=== PATIENT | female | born 1960 | race Caucasian/White ===

== ENCOUNTER 2021-01-31 19:45 | Emergency (ER) | payer BC, MEDICARE ==
[2021-01-31 20:04] VITALS: BP 165/91; PULSE 98
--- NOTE | 2021-01-31 20:33 | EDM.PDOC ---
ED HPI GENERAL MEDICAL PROBLEM - General Chief Complaint: Abdominal Pain Stated Complaint: POSSIBLE BLADDER INFECTION Time Seen by Provider: 01/31/21 20:15 Source of Information: Reports: Patient History Limitations: Reports: No Limitations - History of Present Illness INITIAL COMMENTS - FREE TEXT/NARRATIVE: Nathaly is a 60-year-old female presenting to the ED with urinary symptoms including dysuria and frequency. She is a living donor renal transplant. She also complains of right sided low abdominal pain radiating up into the right upper quadrant. She has had generalized malaise today and just feels achy and ill. She denies any nausea, vomiting, constipation or diarrhea. She has been running low-grade fever at 99.5 F at home. She is afebrile here. She is immunosuppressed due to the transplant on Imuran and CellCept. Her transplant was performed in 2018 at [facility]. Right Lower Abdomen Pain Score (Numeric/FACES): 5 - Related Data Allergies Allergy/AdvReac Type Severity Reaction Status Date / Time Sulfa (Sulfonamide Allergy Mild Hives Verified 03/05/16 21:40 Antibiotics) Home Meds: Home Meds Aspirin [Aspirin EC] 81 mg PO DAILY 08/28/13 [History] Cholecalciferol (Vitamin D3) [Vitamin D] 2,000 mg PO DAILY 08/28/13 [History] Ferrous Sulfate 324 mg PO BID 08/28/13 [History] Furosemide 20 mg PO DAILY 08/28/13 [History] Lisinopril 20 mg PO BID 08/28/13 [History] Metoprolol Succinate [Toprol XL] 50 mg PO BID 08/28/13 [History] [place]-3 Fatty Acids [[place]-3] 1,000 mg PO DAILY 08/28/13 [History] Omeprazole 20 mg PO ACBRK 08/28/13 [History] Simvastatin 40 mg PO BEDTIME 08/28/13 [History] allopurinoL [Allopurinol] 150 mg PO DAILY 08/28/13 [History] Past Medical History HEENT History: Reports: Impaired Vision Cardiovascular History: Reports: High Cholesterol, Hypertension Gastrointestinal History: Reports: GERD Genitourinary History: Reports: Renal Disease, Other (See Below) Other Genitourinary History: Stage 4 kidney disease. kidney transplant - 10/31/2017 [employer] History: Reports: Musculoskeletal History: Reports: Back Pain, Chronic, Gout Neurological History: Reports: Brain Injury, Head Trauma Endocrine/Metabolic History: Reports: Obesity/BMI 30+ Hematologic History: Reports: Anemia, Iron Deficiency Oncologic (Cancer) History: Reports: Breast Dermatologic History: Reports: Eczema - Infectious Disease History Infectious Disease History: Reports: Chicken Pox - Past Surgical History Female Surgical History: Reports: D&C, Tubal Ligation Oncologic Surgical History: Reports: Lumpectomy Social & Family History - Family History Family Medical History: Unobtainable - Tobacco Use Tobacco Use Status *Q: Never Tobacco User - Caffeine Use Caffeine Use: Reports: Coffee - Recreational Drug Use Recreational Drug Use: No ED ROS GENERAL - Review of Systems Review Of Systems: See Below Constitutional: Reports: Fever, Chills, Malaise HEENT: Reports: No Symptoms Respiratory: Reports: No Symptoms Cardiovascular: Reports: No Symptoms Endocrine: Reports: No Symptoms GI/Abdominal: Reports: Abdominal Pain (Right lower quadrant abdominal pain. Patient still has appendix.) : Reports: Dysuria, Flank Pain (Right), Urgency, Other (Patient has a living donor renal recipient) Musculoskeletal: Reports: No Symptoms Skin: Reports: No Symptoms Neurological: Reports: No Symptoms Psychiatric: Reports: No Symptoms Hematologic/Lymphatic: Reports: No Symptoms Immunologic: Reports: No Symptoms ED EXAM, RENAL/ - Physical Exam Exam: See Below Exam Limited By: No Limitations General Appearance: Alert, No Apparent Distress Head: Atraumatic, Normocephalic Neck: Normal Inspection Respiratory/Chest: No Respiratory Distress, Lungs Clear, Normal Breath Sounds Cardiovascular: Normal Peripheral Pulses, Regular Rate, Rhythm, No Murmur GI/Abdominal: Normal Bowel Sounds, Soft, No Distention, Tender (Mild tenderness in the right lower and right upper quadrant without guarding or rebound. There is significant tympany to percussion over this region. This is likely a pocket of flatus.). No: Guarding, Rigid, Rebound Neurological: Alert, Oriented, Normal Cognition, No Motor/Sensory Deficits Psychiatric: Normal Affect, Normal Mood Skin Exam: Warm, Dry, Intact, Normal Color Lymphatic: No Adenopathy Course - Vital Signs Last Recorded V/S: Last Vital Signs Temp 37.2 C 01/31/21 20:02 Pulse 98 01/31/21 20:02 Resp 16 01/31/21 20:02 BP 165/91 H 01/31/21 20:02 Pulse Ox 95 01/31/21 20:02 - Orders/Labs/Meds Labs: Laboratory Tests 01/31/21 Range/Units 20:05 Urine Color Yellow (YELLOW) Urine Appearance Cloudy A (CLEAR) Urine pH 7.0 (5.0-8.0) Ur Specific [place] >= 1.030 (1.008-1.030) Urine Protein >=300 H (NEGATIVE) mg/dL Urine Glucose (UA) Negative (NEGATIVE) mg/dL Urine Ketones Negative (NEGATIVE) mg/dL Urine Occult Blood Moderate H (NEGATIVE) Urine Nitrite Negative (NEGATIVE) Urine Bilirubin Negative (NEGATIVE) Urine Urobilinogen 0.2 (0.2-1.0) EU/dL Ur Leukocyte Esterase Moderate H (NEGATIVE) Urine RBC 75-100 H (0-5) Urine WBC 50-75 H (0-5) Ur Epithelial Cells Few Amorphous Sediment Few Urine Bacteria Moderate Urine Mucus Occasional - Re-Assessments/Exams Free Text/Narrative Re-Assessment/Exam: 01/31/21 20:35 I reviewed the patient's urinalysis showing 75-100 RBCs, 50-75 WBCs and leukocyte esterase positive. This is significant for a urinary tract infection with hematuria. We will start her on cephalexin 500 mg twice daily for 10 days. In addition I ordered a urine culture to ensure that we appropriately treat the bacterium. The right sided abdominal pain is likely due to excessive flatus. Because of the renal transplant, she is unable to take any of the simethicone-based medications that contain phosphates which eliminates all but Maalox. She may take a single dose of Maalox safely. Indications return to the ED were discussed and she was discharged in satisfactory condition. Departure - Departure Time of Disposition: 20:28 Disposition: Home, Self-Care 01 Clinical Impression: Renal transplant recipient, Flatus Urinary tract infection Qualifiers: Urinary tract infection type: acute cystitis Hematuria presence: with hematuria Qualified Code(s): N30.01 - Acute cystitis with hematuria - Discharge Information Instructions: Abdominal Pain, Adult, [id number], Urinary Tract Infection, Adult, [id number] Referrals: Debbie Shirley PA-C [Primary Care Provider] - Care Plan Goals: We are starting you out on cephalexin 500 mg twice daily for 10 days. I have ordered a urine culture and if this shows resistance to the cephalexin we will contact you and change the antibiotic. Please contact your transplant team and let them know that you have a urinary tract infection just for their knowledge. Should you have any worsening of your condition return to the ED immediately for reevaluation. Make sure to push plenty of fluids. Sepsis Event Note (ED) - Evaluation Sepsis Screening Result: No Definite Risk - Focused Exam Vital Signs: Vital Signs Temp Pulse Resp BP Pulse Ox 01/31/21 20:02 37.2 C 98 16 165/91 H 95 - Problem List & Annotations (1) Flatus SNOMED Code(s): 778780301 Code(s): R14.3 - FLATULENCE Status: Acute Priority: Low Current Visit: Yes (2) Renal transplant recipient Status: Acute Priority: High Current Visit: Yes (3) Urinary tract infection SNOMED Code(s): 59874376 Code(s): N39.0 - URINARY TRACT INFECTION, SITE NOT SPECIFIED Status: Acute Priority: Medium Current Visit: Yes Qualifiers: Urinary tract infection type: acute cystitis Hematuria presence: with hematuria Qualified Code(s): N30.01 - Acute cystitis with hematuria - Problem List Review Problem List Initiated/Reviewed/Updated: Yes
== END 2021-01-31 20:41 | disposition home or self-care (01) ==
LOC: JP.ED 19:45
DX: N30.01 Acute cystitis with hematuria (principal); R14.3 Flatulence; I12.9 Hypertensive chronic kidney disease with stage 1 through stage 4 chronic kidney disease, or unspecified chronic kidney disease; N18.4 Chronic kidney disease, stage 4 (severe); K21.9 Gastro-esophageal reflux disease without esophagitis; E66.9 Obesity, unspecified; Z88.2 Allergy status to sulfonamides; Z94.0 Kidney transplant status; Z79.82 Long term (current) use of aspirin; Z68.39 Body mass index [BMI] 39.0-39.9, adult
CPT/HCPCS: 81001; 87086; 99283; 99284

== ENCOUNTER 2021-03-06 07:19 | Emergency (ER) | payer BC ==
[2021-03-06 07:42] VITALS: BP 147/89; PULSE 86
--- NOTE | 2021-03-06 08:07 | EDM.PDOC ---
ED HPI GENERAL MEDICAL PROBLEM - General Chief Complaint: Back Pain or Injury Stated Complaint: BACK PAIN AND LEG PAIN Time Seen by Provider: 03/06/21 07:50 Source of Information: Reports: Patient History Limitations: Reports: No Limitations - History of Present Illness INITIAL COMMENTS - FREE TEXT/NARRATIVE: 60 yo female here with L buttocks pain that radiates down her L leg. Sx's x 8 days. Was seen in the clinic this past Monday and is not getting better. Sx's began when she got up from a chair at work. No fall or lifting. Pain does not radiate with coughing. No bowel or bladder dysfunction. PHx of kidney transplant. 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) (gabapentin/tizanidine) Lower Back Pain Score (Numeric/FACES): 3 - Related Data Allergies Allergy/AdvReac Type Severity Reaction Status Date / Time Sulfa (Sulfonamide Allergy Mild Hives Verified 03/06/21 07:38 Antibiotics) Home Meds: Home Meds Aspirin 1 tab PO BEDTIME 01/31/21 [History] Dulaglutide [Trulicity] 0.5 ml SQ WEEKLY 01/31/21 [History] Ferrous Gluconate 1 tab PO BID 01/31/21 [History] Loratadine 1 tab PO DAILY 01/31/21 [History] Magnesium Oxide [Magnesium] 1 tab PO BID 01/31/21 [History] Metoprolol Tartrate 1 tab PO BID 01/31/21 [History] Multivit-Min/FA/Lycopen/Lutein [Certavite Senior Tablet] 1 tab PO DAILY 01/31/21 [History] [id number] Ethyl Esters [Lovaza] 1 cap PO DAILY 01/31/21 [History] Omeprazole 1 cap PO DAILY 01/31/21 [History] Tacrolimus 1 cap PO DAILY 01/31/21 [History] Tacrolimus [Prograf] 1 cap PO DAILY 01/31/21 [History] amLODIPine [Norvasc] 1 tab PO DAILY 01/31/21 [History] atorvaSTATin [Lipitor] 1 tab PO BEDTIME 01/31/21 [History] gemfibroziL [Gemfibrozil] 1 tab PO BID 01/31/21 [History] metFORMIN HCl [Metformin ER Gastric] 1,000 mg PO BID 01/31/21 [History] mycophenolate mofetiL [Mycophenolate Mofetil] 3 cap PO ACBREAKFAST 01/31/21 [History] Gabapentin [Neurontin] 200 mg PO BID 03/06/21 [History] tiZANidine [Zanaflex] 4 mg PO Q8H PRN 03/06/21 [History] Past Medical History HEENT History: Reports: Impaired Vision Cardiovascular History: Reports: High Cholesterol, Hypertension Gastrointestinal History: Reports: GERD Genitourinary History: Reports: Renal Disease, Other (See Below) Other Genitourinary History: Stage 4 kidney disease. kidney transplant - 10/31/2017 [employer] History: Reports: Musculoskeletal History: Reports: Back Pain, Chronic, Gout Neurological History: Reports: Brain Injury, Head Trauma Endocrine/Metabolic History: Reports: Obesity/BMI 30+ Hematologic History: Reports: Anemia, Iron Deficiency Oncologic (Cancer) History: Reports: Breast Dermatologic History: Reports: Eczema - Infectious Disease History Infectious Disease History: Reports: Chicken Pox - Past Surgical History Female Surgical History: Reports: D&C, Tubal Ligation Oncologic Surgical History: Reports: Lumpectomy Social & Family History - Family History Family Medical History: Unobtainable - Tobacco Use Tobacco Use Status *Q: Never Tobacco User - Caffeine Use Caffeine Use: Reports: Coffee - Recreational Drug Use Recreational Drug Use: No ED ROS GENERAL - Review of Systems Review Of Systems: See Below Constitutional: Reports: No Symptoms HEENT: Reports: No Symptoms Respiratory: Reports: No Symptoms Cardiovascular: Reports: No Symptoms GI/Abdominal: Reports: No Symptoms Musculoskeletal: Denies: Back Pain Skin: Reports: No Symptoms Neurological: Reports: Other (pain radiates down L leg) Psychiatric: Reports: No Symptoms ED EXAM,LOWER BACK PAIN/INJURY - Physical Exam Exam: See Below Exam Limited By: No Limitations General Appearance: Alert, WD/WN, No Apparent Distress, Obese Back Exam: Muscle Spasm, Paraspinal Tenderness, Vertebral Tenderness, Other (L sciatic notch tenderness). No: CVA Tenderness (R), CVA Tenderness (L) Extremities: Normal Inspection, Normal Range of Motion, Non-Tender, No Pedal Edema. No: Adelina's Sign Neurological: Alert, Normal Mood/Affect, CN II-XII Intact, No Motor/Sensory Deficits, Oriented x 3, Straight Leg Raise (L). No: Straight Leg Raise (R) DTR - Lower Extremities: 1+: Knee (R), Knee (L) Psychiatric: Normal Affect, Normal Mood Skin Exam: Warm, Dry, Intact, Normal Color, No Rash Course - Vital Signs Last Recorded V/S: Last Vital Signs Temp 36.4 C 03/06/21 07:49 Pulse 86 03/06/21 07:49 Resp 17 03/06/21 07:49 BP 147/89 H 03/06/21 07:49 Pulse Ox 96 03/06/21 07:49 Departure - Departure Time of Disposition: 08:08 Disposition: Home, Self-Care 01 Condition: Good Clinical Impression: Left sided sciatica - Discharge Information *PRESCRIPTION DRUG MONITORING PROGRAM REVIEWED*: No *COPY OF PRESCRIPTION DRUG MONITORING REPORT IN PATIENT [place]: No Instructions: Sciatica, [id number] Referrals: Debbie Shirley PA-C [Primary Care Provider] - Additional Instructions: Stop the tizanidine. You may continue the gabapentin. Take prednisone as directed. Add [place] as needed for added pain relief. See your provider for recheck early this next week. Sepsis Event Note (ED) - Evaluation Sepsis Screening Result: No Definite Risk - Focused Exam Vital Signs: Vital Signs Temp Pulse Resp BP Pulse Ox 03/06/21 07:49 36.4 C 86 17 147/89 H 96 03/06/21 07:41 36.4 C 86 17 147/89 H 96
== END 2021-03-06 08:23 | disposition home or self-care (01) ==
LOC: JP.ED 07:19
DX: M54.42 Lumbago with sciatica, left side (principal); E78.00 Pure hypercholesterolemia, unspecified; K21.9 Gastro-esophageal reflux disease without esophagitis; I12.9 Hypertensive chronic kidney disease with stage 1 through stage 4 chronic kidney disease, or unspecified chronic kidney disease; N18.4 Chronic kidney disease, stage 4 (severe); E66.9 Obesity, unspecified; Z68.39 Body mass index [BMI] 39.0-39.9, adult; Z88.2 Allergy status to sulfonamides; Z79.899 Other long term (current) drug therapy
CPT/HCPCS: 99283

== ENCOUNTER 2023-03-06 10:33 | Emergency (ER) | payer BC ==
[2023-03-06 11:24] LABS: BASOPHILS ABSOLUTE AUTO 0.03 K/uL (0.00-0.10); BASOPHILS PERCENT AUTO 0.4 % (0.1-1.3); EOSINOPHILS ABSOLUTE AUTO 0.15 K/uL (0.00-0.40); EOSINOPHILS PERCENT AUTO 2.2 % (0.0-5.4); HEMATOCRIT 38.4 % (34.3-46.0); HEMOGLOBIN 12.5 g/dL (11.2-15.5); IMMATURE GRAN ABSOLUTE AUTO 0.03 K/uL (0.00-0.23); IMMATURE GRAN PERCENT AUTO 0.4 % (0.0-0.7); LYMPHOCYTES ABSOLUTE AUTO 1.45 K/uL (0.8-3.3); LYMPHOCYTES PERCENT AUTO 21.7 % (11.4-47.7); MEAN CORPUSCULAR HEMOGLOBIN 27.4 pg (31.6-35.5); MEAN CORPUSCULAR HGB CONC 32.6 g/dL (31.6-35.5); MONOCYTES ABSOLUTE AUTO 0.61 K/uL (0.20-0.90); MONOCYTES PERCENT AUTO 9.1 % (3.3-12.6); NEUTROPHILS ABSOLUTE AUTO 4.41 K/uL (1.0-7.6); NEUTROPHILS PERCENT AUTO 66.2 % (40.0-78.1); PLATELET COUNT,PLT 204 K/uL (130-375); RED BLOOD CELL COUNT 4.57 M/uL (3.77-5.24); WHITE BLOOD CELL COUNT,WBC 6.7 K/uL (3.2-11.0)
[2023-03-06 11:53] LABS: A/G RATIO 0.9 (1.2-2.2); ALANINE AMINOTRANSFERASE,ALT 48 U/L (12-78); ALBUMIN 3.7 g/dL (3.4-5.0); ALKALINE PHOSPHATASE 90 U/L (46-116); ASPARTATE AMNIOTRANSFERASE,AST 27 U/L (15-37); BILIRUBIN TOTAL 0.4 mg/dL (0.2-1.0); BLOOD UREA NITROGEN,BUN 19 mg/dL (7-18); CALCIUM 9.5 mg/dL (8.5-10.1); CARBON DIOXIDE,CO2 25 mmol/L (21-32); CHLORIDE,CL 103 mmol/L (100-108); EST CRCL DRUG DOSING (CG) 51.66 mL/min; ESTIMATED GFR 64 mL/min (>60); GLUCOSE RANDOM 103 mg/dL (74-106); MAGNESIUM 1.4 mg/dL (1.8-2.4); POTASSIUM,K 4.2 mmol/L (3.6-5.2); PROTEIN TOTAL,TP 7.8 g/dL (6.4-8.2); SODIUM,NA 140 mmol/L (140-148); TROPONIN I HIGH SENSITIVITY 5.2 pg/mL (<=60.3); TSH ULTRASENSITIVE 2.573 uIU/mL (0.358-3.740)
[2023-03-06 12:28] VITALS: BP 132/72; PULSE 82
== END 2023-03-06 12:35 | disposition home or self-care (01) ==
LOC: JP.ED 10:33
DX: I49.3 Ventricular premature depolarization (principal); E83.42 Hypomagnesemia; E78.00 Pure hypercholesterolemia, unspecified; I12.9 Hypertensive chronic kidney disease with stage 1 through stage 4 chronic kidney disease, or unspecified chronic kidney disease; N18.4 Chronic kidney disease, stage 4 (severe); D63.1 Anemia in chronic kidney disease; E66.9 Obesity, unspecified; Z88.2 Allergy status to sulfonamides; Z79.899 Other long term (current) drug therapy; Z68.37 Body mass index [BMI] 37.0-37.9, adult
CPT/HCPCS: 36415; 80053; 83735; 84443; 84484; 85025; 93005; 93010; 99283; 99285

== ENCOUNTER 2024-01-05 07:39 | Day surgery (SDC) | payer BC ==
[2024-01-05] MEDS ORDERED: Propofol 200 MG/20 ML SDV ONE (08:26)
[2024-01-05] MEDS ORDERED: fentaNYL 50 MCG/ML SDV ONE (08:26)
[2024-01-05] MEDS ORDERED: Midazolam 1 MG/ML 2 ML SDV ONE (08:26)
[2024-01-05] MEDS: Sodium Chloride 0.9% 1,000 ML IV SCH (08:30)
[2024-01-05 10:03] VITALS: BP 156/88; PULSE 78
== END 2024-01-05 10:06 | disposition home or self-care (01) ==
LOC: JP.SDS 07:39
PROVIDERS: ATTEND Surgery
DX: Z12.11 Encounter for screening for malignant neoplasm of colon (principal); I10 Essential (primary) hypertension; K21.9 Gastro-esophageal reflux disease without esophagitis; E11.9 Type 2 diabetes mellitus without complications; G47.33 Obstructive sleep apnea (adult) (pediatric)
CPT/HCPCS: 45378; J2250; J2704; J3010; J7030

== ENCOUNTER 2025-02-16 20:21 | Emergency (ER) | payer BC ==
[2025-02-16 20:41] VITALS: BP 154/97; PULSE 104
[2025-02-16 21:11] LABS: BASOPHILS ABSOLUTE AUTO 0.01 K/uL (0.00-0.10); BASOPHILS PERCENT AUTO 0.3 % (0.1-1.3); EOSINOPHILS ABSOLUTE AUTO 0.01 K/uL (0.00-0.40); EOSINOPHILS PERCENT AUTO 0.3 % (0.0-5.4); HEMATOCRIT 37.8 % (34.3-46.0); HEMOGLOBIN 12.3 g/dL (11.2-15.5); IMMATURE GRAN ABSOLUTE AUTO 0.03 K/uL (0.00-0.23); IMMATURE GRAN PERCENT AUTO 0.9 % (0.0-0.7); LYMPHOCYTES ABSOLUTE AUTO 0.32 K/uL (0.8-3.3); LYMPHOCYTES PERCENT AUTO 9.3 % (11.4-47.7); MEAN CORPUSCULAR HEMOGLOBIN 28.6 pg (31.6-35.5); MEAN CORPUSCULAR HGB CONC 32.5 g/dL (31.6-35.5); MEAN CORPUSCULAR VOLUME 87.9 fL (81.4-99.0); MONOCYTES ABSOLUTE AUTO 0.28 K/uL (0.20-0.90); MONOCYTES PERCENT AUTO 8.2 % (3.3-12.6); NEUTROPHILS ABSOLUTE AUTO 2.78 K/uL (1.0-7.6); PLATELET COUNT,PLT 119 K/uL (130-375); WHITE BLOOD CELL COUNT,WBC 3.4 K/uL (3.2-11.0)
[2025-02-16 21:31] LABS: A/G RATIO 0.9 (1.2-2.2); ALANINE AMINOTRANSFERASE,ALT 49 U/L (12-78); ALBUMIN 3.4 g/dL (3.4-5.0); ALKALINE PHOSPHATASE 91 U/L (46-116); ASPARTATE AMNIOTRANSFERASE,AST 28 U/L (15-37); BILIRUBIN TOTAL 0.5 mg/dL (0.2-1.0); BLOOD UREA NITROGEN,BUN 15 mg/dL (7-18); CALCIUM 9.3 mg/dL (8.5-10.1); CARBON DIOXIDE,CO2 24 mmol/L (21-32); CHLORIDE,CL 99 mmol/L (100-108); CREATININE 1.1 mg/dL (0.6-1.0); EST CRCL DRUG DOSING (CG) 45.79 mL/min; ESTIMATED GFR 57 mL/min (>60); GLUCOSE RANDOM 232 mg/dL (74-106); POTASSIUM,K 4.2 mmol/L (3.6-5.2); PROTEIN TOTAL,TP 7.1 g/dL (6.4-8.2); SODIUM,NA 133 mmol/L (140-148)
[2025-02-16 21:32] LABS: ANION GAP 14.2 mmol/L (5.0-14.0)
== END 2025-02-16 21:46 | disposition home or self-care (01) ==
LOC: JP.ED 20:21
DX: B34.9 Viral infection, unspecified (principal); I10 Essential (primary) hypertension; K21.9 Gastro-esophageal reflux disease without esophagitis; E78.00 Pure hypercholesterolemia, unspecified; E66.9 Obesity, unspecified; E11.9 Type 2 diabetes mellitus without complications; Z88.2 Allergy status to sulfonamides; Z88.8 Allergy status to other drugs, medicaments and biological substances; Z79.82 Long term (current) use of aspirin; Z79.899 Other long term (current) drug therapy
CPT/HCPCS: 36415; 80053; 83690; 85025; 87428-QW; 99283; 99284

== ENCOUNTER 2025-02-17 14:04 | Emergency (ER) | payer BC ==
[2025-02-17] MEDS: Ondansetron 4 MG/2 ML SDV IVPUSH ONE (14:56)
[2025-02-17] MEDS: Sodium Chloride 0.9% 1,000 ML IV ONE (14:58)
[2025-02-17 16:06] LABS: APPEARANCE,URINE CLOUDY (CLEAR); BILIRUBIN,URINE NEGATIVE (NEGATIVE); COLOR,URINE YELLOW (YELLOW); GLUCOSE,URINE NEGATIVE (NEGATIVE); KETONES,URINE NEGATIVE (NEGATIVE); LEUKOCYTE ESTERASE,URINE SMALL (NEGATIVE); NITRITE,URINE POSITIVE (NEGATIVE); OCCULT BLOOD,URINE TRACE-INTACT (NEGATIVE); PH,URINE 6.5 (5.0-8.0); PROTEIN,URINE 30 mg/dL (NEGATIVE); UROBILINOGEN,URINE 0.2 EU/dL (0.2-1.0)
[2025-02-17 16:13] LABS: AMORPHOUS SEDIMENT,URINE NOT SEEN; BACTERIA,URINE MODERATE; EPITHELIAL CELLS,URINE NOT SEEN; MUCUS,URINE NOT SEEN; RBC,URINE 0-5 (0-5); WBC,URINE PACKED (0-5)
[2025-02-17] MEDS: cefTRIAXone 1 GM in Sodium Chloride 0.9% 50 ML IV ONE (16:31)
[2025-02-17 18:01] VITALS: BP 114/66; PULSE 89
[2025-02-18] MEDS ORDERED: Sodium Chloride 0.9% 1,000 ML IV SCH (02:00)
== END 2025-02-17 18:03 | disposition home or self-care (01) ==
LOC: JP.ED 14:04
DX: R53.1 Weakness (principal); N39.0 Urinary tract infection, site not specified; I10 Essential (primary) hypertension; E78.00 Pure hypercholesterolemia, unspecified; K21.9 Gastro-esophageal reflux disease without esophagitis; E11.9 Type 2 diabetes mellitus without complications; E66.9 Obesity, unspecified; Z68.38 Body mass index [BMI] 38.0-38.9, adult; Z88.2 Allergy status to sulfonamides; Z88.7 Allergy status to serum and vaccine; Z88.8 Allergy status to other drugs, medicaments and biological substances; Z79.82 Long term (current) use of aspirin; Z79.84 Long term (current) use of oral hypoglycemic drugs; Z79.899 Other long term (current) drug therapy
CPT/HCPCS: 36415; 71045; 81001; 83605; 96361; 96365; 96375; 99285; J0696; J2405; J7030

== ENCOUNTER 2025-02-18 01:14 | Emergency (ER) | payer BC ==
[2025-02-18] MEDS: Sodium Chloride 0.9% 1,000 ML IV SCH ×3 (02:16→08:00)
[2025-02-18 02:39] LABS: A/G RATIO 0.9 (1.2-2.2); ALANINE AMINOTRANSFERASE,ALT 63 U/L (12-78); ALBUMIN 3.2 g/dL (3.4-5.0); ALKALINE PHOSPHATASE 79 U/L (46-116); ASPARTATE AMNIOTRANSFERASE,AST 58 U/L (15-37); BILIRUBIN TOTAL 0.6 mg/dL (0.2-1.0); BLOOD UREA NITROGEN,BUN 14 mg/dL (7-18); CALCIUM 9.1 mg/dL (8.5-10.1); CARBON DIOXIDE,CO2 24 mmol/L (21-32); CHLORIDE,CL 99 mmol/L (100-108); EST CRCL DRUG DOSING (CG) 50.37 mL/min; ESTIMATED GFR 64 mL/min (>60); GLUCOSE RANDOM 165 mg/dL (74-106); POTASSIUM,K 4.3 mmol/L (3.6-5.2); PROTEIN TOTAL,TP 6.9 g/dL (6.4-8.2); SODIUM,NA 133 mmol/L (140-148); TROPONIN I HIGH SENSITIVITY 4.3 pg/mL (<=60.3)
[2025-02-18 02:40] LABS: ANION GAP 14.3 mmol/L (5.0-14.0)
[2025-02-18] MEDS: Magnesium Oxide 400 MG Tab PO ONE (02:55)
[2025-02-18] MEDS: Acetaminophen 500 MG Tab PO ONE ×2 (02:55→07:57)
[2025-02-18] MEDS: cefTRIAXone 1 GM in Sodium Chloride 0.9% 50 ML IV ONE (03:12)
[2025-02-18] MEDS ORDERED: Sodium Chloride 0.9% 1,000 ML IV SCH (03:45)
[2025-02-18] MEDS: Iopamidol 755 Mg/ML 100 ML Bottle IV SCH (04:19)
[2025-02-18] MEDS: Sodium Chloride 0.9% 10 ML Syringe FLUSH PRN (04:19)
[2025-02-18] MEDS: Sodium Chloride 0.9% 100 ML IV SCH (04:19)
[2025-02-18 06:04] LABS: HEMOGLOBIN 11.9 g/dL (11.2-15.5); RED BLOOD CELL COUNT 4.14 M/uL (3.77-5.24); WHITE BLOOD CELL COUNT,WBC 2.6 K/uL (3.2-11.0)
[2025-02-18 06:05] LABS: BASOPHILS PERCENT AUTO 0.4 % (0.1-1.3); IMMATURE GRAN PERCENT AUTO 0.8 % (0.0-0.7); LYMPHOCYTES ABSOLUTE AUTO 0.27 K/uL (0.8-3.3); LYMPHOCYTES PERCENT AUTO 10.5 % (11.4-47.7); MEAN CORPUSCULAR HEMOGLOBIN 28.7 pg (31.6-35.5); MEAN CORPUSCULAR HGB CONC 33.1 g/dL (31.6-35.5); MONOCYTES ABSOLUTE AUTO 0.17 K/uL (0.20-0.90); MONOCYTES PERCENT AUTO 6.6 % (3.3-12.6); NEUTROPHILS PERCENT AUTO 81.7 % (40.0-78.1); PLATELET COUNT,PLT 88 K/uL (130-375)
[2025-02-18 06:06] LABS: BASOPHILS ABSOLUTE AUTO 0.01 K/uL (0.00-0.10); IMMATURE GRAN ABSOLUTE AUTO 0.02 K/uL (0.00-0.23)
[2025-02-18] MEDS: Ondansetron 4 MG/2 ML SDV IVPUSH ONE ×2 (07:58→09:08)
[2025-02-18] MEDS ORDERED: VANCOmycin 1 GM in Sodium Chloride 0.9% 250 ML IV ONE (08:33)
[2025-02-18] MEDS: Sodium Chloride 0.9% 1,000 ML IV ONE (09:09)
[2025-02-18] MEDS: VANCOmycin 1.5 GM in Sodium Chloride 0.9% 250 ML IV ONE (09:31)
[2025-02-18 13:25] VITALS: BP 125/72; PULSE 102
[2025-02-22 01:51] LABS: CMV QNT BY NAAT, PL LOG IU/ML Not Detected log IU/mL; CMV QNT BY NAAT, PLASMA INTERP Not Detected (Not Detected); CMV QNT BY NAAT, PLASMA IU/ML Not Detected
== END 2025-02-18 13:28 ==
LOC: JP.ED 01:14
DX: E86.0 Dehydration (principal); N39.0 Urinary tract infection, site not specified; R16.1 Splenomegaly, not elsewhere classified; R09.02 Hypoxemia; I12.9 Hypertensive chronic kidney disease with stage 1 through stage 4 chronic kidney disease, or unspecified chronic kidney disease; N18.9 Chronic kidney disease, unspecified; E78.00 Pure hypercholesterolemia, unspecified; E11.22 Type 2 diabetes mellitus with diabetic chronic kidney disease; Z86.16 Personal history of COVID-19; Z88.2 Allergy status to sulfonamides; Z88.7 Allergy status to serum and vaccine; Z88.8 Allergy status to other drugs, medicaments and biological substances; Z91.040 Latex allergy status; Z79.82 Long term (current) use of aspirin; Z79.84 Long term (current) use of oral hypoglycemic drugs; Z79.899 Other long term (current) drug therapy
CPT/HCPCS: 36415; 71275; 80053; 83605; 83735; 83880; 84484; 85025; 85379; 87040; 87086; 87088; 87186; 87497; 93005; 96361; 96365; 96366; 96367; 96375; 99285; A9270; J0696; J2405; J7030; J7050; Q9967

== ENCOUNTER 2025-03-22 17:51 | Emergency (ER) | payer BC ==
[2025-03-22 19:23] LABS: APPEARANCE,URINE SLIGHTLY CLOUDY (CLEAR); BILIRUBIN,URINE NEGATIVE (NEGATIVE); COLOR,URINE YELLOW (YELLOW); GLUCOSE,URINE NEGATIVE (NEGATIVE); KETONES,URINE NEGATIVE (NEGATIVE); LEUKOCYTE ESTERASE,URINE TRACE (NEGATIVE); NITRITE,URINE NEGATIVE (NEGATIVE); OCCULT BLOOD,URINE TRACE-INTACT (NEGATIVE); PH,URINE 6.5 (5.0-8.0); PROTEIN,URINE NEGATIVE (NEGATIVE); UROBILINOGEN,URINE 0.2 EU/dL (0.2-1.0)
[2025-03-22 19:30] LABS: AMORPHOUS SEDIMENT,URINE NOT SEEN; BACTERIA,URINE FEW; EPITHELIAL CELLS,URINE FEW; MUCUS,URINE RARE; RBC,URINE 0-5 (0-5)
[2025-03-22 19:57] LABS: BASOPHILS PERCENT AUTO 0.4 % (0.1-1.3); EOSINOPHILS ABSOLUTE AUTO 0.17 K/uL (0.00-0.40); EOSINOPHILS PERCENT AUTO 3.2 % (0.0-5.4); HEMATOCRIT 37.1 % (34.3-46.0); HEMOGLOBIN 12.1 g/dL (11.2-15.5); IMMATURE GRAN ABSOLUTE AUTO 0.06 K/uL (0.00-0.23); IMMATURE GRAN PERCENT AUTO 1.1 % (0.0-0.7); LYMPHOCYTES ABSOLUTE AUTO 1.17 K/uL (0.8-3.3); MEAN CORPUSCULAR HEMOGLOBIN 28.4 pg (31.6-35.5); MEAN CORPUSCULAR HGB CONC 32.6 g/dL (31.6-35.5); MEAN CORPUSCULAR VOLUME 87.1 fL (81.4-99.0); MONOCYTES ABSOLUTE AUTO 0.44 K/uL (0.20-0.90); MONOCYTES PERCENT AUTO 8.3 % (3.3-12.6); NEUTROPHILS ABSOLUTE AUTO 3.45 K/uL (1.0-7.6); PLATELET COUNT,PLT 195 K/uL (130-375); RED BLOOD CELL COUNT 4.26 M/uL (3.77-5.24); WHITE BLOOD CELL COUNT,WBC 5.3 K/uL (3.2-11.0)
[2025-03-22 19:58] LABS: BASOPHILS ABSOLUTE AUTO 0.02 K/uL (0.00-0.10)
[2025-03-22] MEDS: cefTRIAXone 2 GM in Sodium Chloride 0.9% 50 ML IV ONE (19:59)
[2025-03-22] MEDS: Sodium Chloride 0.9% 1,000 ML IV SCH (20:00)
[2025-03-22 20:12] LABS: ANION GAP 12.5 mmol/L (5.0-14.0); CALCIUM 9.8 mg/dL (8.5-10.1); CREATININE 0.9 mg/dL (0.6-1.0); EST CRCL DRUG DOSING (CG) 55.97 mL/min
[2025-03-22 21:01] VITALS: BP 135/79; PULSE 80
== END 2025-03-22 21:17 | disposition home or self-care (01) ==
LOC: JP.ED 17:51
DX: N39.0 Urinary tract infection, site not specified (principal); I12.9 Hypertensive chronic kidney disease with stage 1 through stage 4 chronic kidney disease, or unspecified chronic kidney disease; E66.9 Obesity, unspecified; E78.00 Pure hypercholesterolemia, unspecified; E11.9 Type 2 diabetes mellitus without complications; K21.9 Gastro-esophageal reflux disease without esophagitis; N18.9 Chronic kidney disease, unspecified; Z88.2 Allergy status to sulfonamides; Z88.8 Allergy status to other drugs, medicaments and biological substances; Z91.040 Latex allergy status; Z88.7 Allergy status to serum and vaccine; Z79.82 Long term (current) use of aspirin; Z79.899 Other long term (current) drug therapy; Z86.16 Personal history of COVID-19; Z68.36 Body mass index [BMI] 36.0-36.9, adult
CPT/HCPCS: 36415; 80048; 81001; 82947; 85025; 96365; 99283; 99284; J0696; J7030